=== PATIENT | female | born 1960 | race Caucasian/White ===

== ENCOUNTER 2023-12-09 22:29 | Outpatient (CLI) | payer OTHER | END 2023-12-09 23:59 | disposition critical access hospital (66) | LOC: EMS 22:29 | DX: R07.9 Chest pain, unspecified (principal); R06.00 Dyspnea, unspecified; R06.82 Tachypnea, not elsewhere classified; R61 Generalized hyperhidrosis | CPT/HCPCS: A0425; A0427 ==

== ENCOUNTER 2023-12-09 22:47 | Emergency (ER) | payer OTHER ==
[2023-12-09 23:25] LABS: BASOPHILS % (AUTO) 0.4 %; EOSINOPHILS # (AUTO) 0.1 10^3/uL (0.0-0.7); HCT - HEMATOCRIT 39.5 % (37.0-47.0); HGB - HEMOGLOBIN 12.1 g/dL (12.0-16.0); LYMPHOCYTES # (AUTO) 1.5 10^3/uL (1.5-3.5); MEAN CORPUSCULAR HEMOGLOBIN 27.5 pg (27.0-31.0); MEAN CORPUSCULAR HGB CONC 30.6 g/dL (32.0-36.0); MEAN CORPUSCULAR VOLUME 89.8 fL (81.0-99.0); MEAN PLATELET VOLUME 11.4 fL (7.9-10.8); MONOCYTES # (AUTO) 0.4 10^3/uL (0.0-1.0); MONOCYTES % (AUTO) 4.9 %; NEUTROPHILS # (AUTO) 5.9 10^3/uL (1.5-6.6); NEUTROPHILS % (AUTO) 74.3 %; PLT - PLATELET COUNT 233 10^3/uL (130-450); RED CELL DISTRIBUTION WIDTH 13.9 % (12.0-15.0)
--- NOTE | 2023-12-09 23:36 | ED Physician Documentation ---
History of Present Illness - Stated complaint Stated Complaint: CHEST/BACK PX - Chief complaint Chief Complaint: Cardiac - Additonal information Additional information: Patient is 63-year-old female presenting to the emergency department chief complaint chest pain. Endorses for chest pain that was radiating into her back that began at approximately 2130 this evening. Reports it felt like a bandlike pressure across her chest into her back. Reports a history of back spasms but states that this felt significantly different. Denies any known history cardiac disease. Does report recent flight back from [place] where she was on [place] t[place] approximately 1 week ago. Denies any history hypertension, dyslipidemia, diabetes, previous blood clots. Current medications include semaglutide for weight loss, Ambien for chronic insomnia, levothyroxine. Was given aspirin and nitro per EMS. Currently reports all symptoms resolved. Review of Systems Constitutional: denies: Fever Eyes: denies: Loss of vision Ears: denies: Loss of hearing Nose: denies: Rhinorrhea / runny nose Throat: denies: Dental pain / toothache Cardiac: reports: Chest pain / pressure Respiratory: denies: Dyspnea GI: denies: Abdominal Pain : denies: Dysuria PD PAST MEDICAL HISTORY - Past Medical History Past Medical History: Yes - Present Medications Home Medications: Ambulatory Orders Medication Instructions Recorded Confirmed Levothyroxine Sodium 50 mcg PO DAILY 12/09/23 12/09/23 Semaglutide [Ozempic] See Rx Instructions .ROUTE .COMPLEX 12/09/23 12/09/23 Zolpidem [Ambien] 5 mg PO HS 12/09/23 12/09/23 - Allergies Allergies/Adverse Reactions: Allergies Allergy/AdvReac Type Severity Reaction Status Date / Time No Known Drug Allergies Allergy Verified 12/09/23 22:51 - Social History Does the pt smoke?: No Smoking Status: Never smoker Does the pt drink ETOH?: No Does the pt have substance abuse?: No - Immunizations Immunizations are current?: Yes - POLST Patient has POLST: No PD ED PE NORMAL - General General: Alert and oriented X 3 - HEENT HEENT: Atraumatic, PERRL, EOMI, Ears normal, Moist mucous membranes - Neck Neck: Supple, no meningeal sign, No bony TTP, No adenopathy, No JVD - Cardiac Cardiac: RRR - Respiratory Respiratory: No respiratory distress - Abdomen Abdomen: Normal bowel sounds - Female Female : Deferred - Rectal Rectal: Deferred - Derm Derm: Normal color - Extremities Extremities: No deformity, Other (Pulses equal in bilateral upper extremities.) Results - Vitals Vitals: Vital Signs - 24 hr 12/09/23 12/09/23 12/09/23 22:51 22:54 23:30 Temperature 36.5 C 36.5 C Heart Rate 90 90 88 Respiratory 18 18 12 Rate Blood Pressure 173/80 H 173/80 H 163/86 H O2 Saturation 100 100 100 12/10/23 12/10/23 12/10/23 00:00 00:30 01:00 Temperature Heart Rate 95 86 96 Respiratory 13 14 16 Rate Blood Pressure 144/50 H 135/67 H 155/70 H O2 Saturation 99 98 100 12/10/23 12/10/23 01:30 02:00 Temperature Heart Rate 88 95 Respiratory 14 18 Rate Blood Pressure 130/61 O2 Saturation 98 97 Oxygen O2 Source Room air - EKG (time done) 2253 EKG releavant findings:: EKG personally interpreted by author of this note. Relevant findings are: Sinus rhythm with rate 88 bpm. Normal axis. Normal IL, QRS intervals. Bigeminy pattern. No ST segment elevations or T wave inversions. - Labs Labs: Laboratory Tests 12/09/23 12/09/23 12/10/23 23:20 23:20 01:41 WBC 8.0 RBC 4.40 Hgb 12.1 Hct 39.5 MCV 89.8 MCH 27.5 MCHC 30.6 L RDW 13.9 Plt Count 233 MPV 11.4 H Neut # (Auto) 5.9 Lymph # (Auto) 1.5 [place] # (Auto) 0.4 Eos # (Auto) 0.1 Baso # (Auto) 0.0 Absolute Nucleated RBC 0.00 Nucleated RBC % 0.0 Sodium 140 Potassium 3.4 L Chloride 107 Carbon Dioxide 24 Anion Gap 9.0 BUN 17 Creatinine 1.0 Estimated GFR (MDRD) 56 L Glucose 123 H Calcium 9.7 Total Bilirubin 0.4 AST 36 ALT 21 Alkaline Phosphatase 134 H Troponin I High Sens 3.5 5.2 Total Protein 7.5 Albumin 4.3 Globulin 3.2 Albumin/Globulin Ratio 1.3 Lipase 54 PD Medical Decision Making - ED course Complexity details: reviewed results, re-evaluated patient, considered differential, d/w patient ED course: Patient 63-year-old female presenting to the emergency department chief complaint chest tightness and shortness of breath. Had an event of chest tightness and shortness of breath this evening. EKG on arrival demonstrates a bigeminy pattern without clear indications acute cardiac ischemia. Did report that her symptoms had resolved at time of arrival. Otherwise afebrile, hemodynamically stable. Recent travel to [place]. Obtained a CT PE protocol which was negative. Her high-sensitivity troponins were negative. She was monitored in the emergency department on telemetry for several hours. She would frequently move into brief runs of bigeminy, followed by much longer periods in which she would have a narrow complex sinus rhythm with infrequent PVCs. She is overall low risk [place]. At this time there does not appear to be dangerous or life-threatening cause for her symptoms. I will discharge with explicit instructions to return immediately for new or worsening episodes of chest pain chest tightness. Elsewise I will have her follow-up with her primary care doctor as she would benefit from evaluation with them and likely referral to cardiology for further testing. Departure - Departure Disposition: Home, Self Care Clinical Impression: Bigeminal rhythm Chest pain Qualifiers: Chest pain type: unspecified Qualified Code(s): R07.9 - Chest pain, unspecified Instructions: ED Chest Pain Atypical Unkn Cause Comments: Thank you for allowing us to care for you today at [facility]. Today in the emergency department you were evaluated for any possible dangerous or life-threatening medical emergency. All the testing performed in the emergency department today was reassuring. There is no indication of injury to your heart muscle, blood clots in your lungs, injury to your lungs or the great vessels of the chest. As we discussed you did frequently enter into a rhythm in which you had regular premature ventricular complexes. It is possible that this could be causing some of the symptoms you experienced this evening. I would like you to follow-up with your primary care doctor concerning your ER visit. I think it is likely that they will wish to order further testing and/or refer you to a wire straightener for further evaluation. It is very important however that if you have a recurrent episode of chest pain or chest tightness that you return to the emergency department immediately for reevaluation. Forms: PCP List
--- NOTE | 2023-12-10 00:01 | XRAY Report ---
PROCEDURE: Chest 1V INDICATIONS: Chest pain TECHNIQUE: One view of the chest was acquired. COMPARISON: None. FINDINGS: Surgical changes and devices: None. Lungs and pleura: Low lung volumes. No consolidation or pleural effusion. Mediastinum: Normal heart size allowing for technique Bones and chest wall: Unremarkable IMPRESSION: No acute abnormality on this limited single view study with low lung volumes. Reviewed by: Jv Lara MD on 12/09/2023 11:59 PM PDT Approved by: Jv Lara MD on 12/09/2023 11:59 PM PDT Station ID: [id number]
[2023-12-10 00:09] LABS: ALBUMIN 4.3 g/dL (3.2-5.5); ALBUMIN/GLOBULIN RATIO 1.3 (1.0-2.2); BILIRUBIN,TOTAL 0.4 mg/dL (0.2-1.0); CALCIUM 9.7 mg/dL (8.5-10.3); POTASSIUM 3.4 mmol/L (3.5-4.5); TOTAL PROTEIN 7.5 g/dL (6.4-8.9)
[2023-12-10 00:13] LABS: TROPONIN I HIGH SENSITIVITY 3.5 ng/L (2.3-14.8)
[2023-12-10] MEDS ORDERED: iohexoL-300 100 ML VIAL ONE ×2 (00:29→00:38)
[2023-12-10] MEDS: iohexoL-300 100 ML VIAL IVP ONE (01:04)
--- NOTE | 2023-12-10 01:22 | CT Report ---
PROCEDURE: Angio Chest INDICATIONS: CP, high risk wells CONTRAST: 100 ML OMNI 300 TECHNIQUE: After the administration of intravenous contrast, 2 mm axial images were acquired from the pulmonary apices to the posterior costophrenic angles during the arterial phase. In addition, 1 mm lung kernel and 5 mm soft tissue kernel reconstructions were performed. 3-dimensional coronal oblique maximum int ensity projection (MIP) reformats, 8 mm axial MIP, and 5 mm coronal and sagittal MPR reformats were t hen performed through the thorax. For radiation dose reduction, the following was used: automated exp osure control, adjustment of mA and/or kV according to patient size. COMPARISON: Same-day radiograph FINDINGS: Image quality: Diagnostic Lungs and pleura:Mosaic attenuation. No dense airspace disease or pleural effusions. Mediastinum, heart, and esophagus: No acute pulmonary embolism. Borderline cardiomegaly. Mild distal esophageal wall thickening and patulous appearance. No pathologic lymph nodes by size criteria Chest wall and thyroid: No actionable thyroid nodule identified. Chest wall is unremarkable Upper abdomen: No significant findings on this arterial phase study. Bones: Degenerative changes. IMPRESSION: No acute pulmonary mosaic. No dense airspace disease or pleural effusions. Pulmonary mosaic attenuation is nonspecific, possibly related to air trapping and chronic small airways disease. Other findings above. Reviewed by: Jv Lara MD on 12/10/2023 1:20 AM PDT Approved by: Jv Lara MD on 12/10/2023 1:20 AM PDT Station ID: [id number]
[2023-12-10 03:04] VITALS: BP 140/79; O2SAT 98
== END 2023-12-10 03:34 | disposition home or self-care (01) ==
LOC: EDUNIT# → ED 22:47
DX: R07.9 Chest pain, unspecified (principal); R00.8 Other abnormalities of heart beat; Z79.899 Other long term (current) drug therapy
CPT/HCPCS: 36415; 71045; 71275; 80053; 83690; 84484; 85025; 93005; 99284; Q9967

== ENCOUNTER 2024-03-03 12:26 | Outpatient (CLI) | payer OTHER | END 2024-03-03 12:27 | disposition home or self-care (01) | LOC: DI 12:26 | PROVIDERS: ATTEND Nurse Practitioner Family | DX: R07.9 Chest pain, unspecified (principal); I34.0 Nonrheumatic mitral (valve) insufficiency; I51.7 Cardiomegaly; I49.3 Ventricular premature depolarization | CPT/HCPCS: 93307 ==

== ENCOUNTER 2024-03-25 09:20 | Outpatient (CLI) | payer OTHER ==
--- NOTE | 2024-03-25 09:50 | CARDIAC PROCEDURE NOTE ---
Stress Test Report Service Date: 03/25/24 Service Time: 09:30 Ordering Provider: Liz Yuan MD Indication for Test: Assess an episode of chest tightness. Significant Medical History: Grazyna is referred for a treadmill stress echocardiogram today, to assess for an ischemic cause of an episode of resting chest tightness that occurred in early December. She was getting ready for bed and had sudden onset of a mid central chest squeezing sensation that was nonradiating but was associated with difficulty getting her breath. Medics were summoned and she was administered a nitroglycerin with "instant" relief. She was evaluated at the [facility] Emergency Department where EKG revealed ventricular bigeminy, but was nonischemic and troponin was negative. She has not had any recurrence of the chest tightness that was associated with his episode. 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 She did take a vacation to [place] last month where she was walking an average of "10 miles daily", without recurrent chest discomfort or a reduction in stamina. She has not been aware of palpitations or lightheadedness, though she occasionally receives messages for a slow heart rate from her smartwatch. She underwent a diagnostic echocardiogram here on March 03 notable for normal size, wall thickness and function of both the right and left ventricles, with normal diastology of the LV. There was thickening of the mitral valve leaflets with mild to moderate mitral regurgitation without stenosis. She has a history of obstructive sleep apnea that was severe initially with good response to CPAP ov er the last 7-8 years. She obtains symptomatic benefit with better restfulness and sleep quality. For the last 9 months she has been treated with semaglutide with a 40 pound weight loss, which has helped her feel better. She is scheduled to see Dr Ramiro Chin in early April to review her cardiac issues. Cardiac Risk Factors: Positive for family history of coronary artery disease in both parents (father with MA/bypass surgery at age 65, mother with MA in her 80s); history of intermittent blood pressure elevation though never treated continuously with antihypertensive therapy; negative for diabetes, hyperlipidemia (most recent lipids in 12/27 included TChol 188, LDLc 106, HDLc 55, TG 115) and tobacco smoking ever. Modifying factor is treatment with CPAP for severe RADHA for about 7-8 years. Type of Stress Test: ETT with Echocardiography Procedure: -Exercise Treadmill Test- After signing informed consent, the patient underwent echo imaging at rest and then performed treadmill exercise using a [place] protocol. The patient exercised for 4 minutes 39 seconds and achieved a peak heart rate of 156 (99 percent pr edicted maximum heart rate for age), and an estimated workload of 6.6 METS. The test was terminated due to fatigue/shortness of breath. Resting heart rate: 70 Peak heart rate: 156 Normal response to exercise. Resting BP: 133/76 Peak BP: 177/81 (during exercise, increasing to 254/105 in Recovery) Hypertensive BP response to exercise. Room air oxygen saturation during exercise ranged between 97-99%. Rhythm during exercise: Sinus rhythm throughout, with PVCs starting early in exercise, initially isolated, becoming more consistently bigeminal and persisting through Recovery (though there was intermittent loss of signal coincident with post-stress echo imaging.) Total PVCs recorded 187. Symptoms: She denied any chest tightness/pressure/discomfort, as well as awareness of irreglular rhythm/lightheadedness. EKG at rest showed normal sinus rhythm with rare isolated PVC, otherwise entirely normal. EKG at peak stress showed horizontal ST depression of at least 1.0 mm in leads V4-V6 (though difficult to discern with ongoing bigeminy). In Recovery, as noted above BP spiked to 254/105 for several minutes, before decreasing (last was 151/88 at 9:00). Echo imaging, performed at rest and with stress, will be reported separately. Jesu Ledesma MD, was present throughout this treadmill stress study and supervised it in its entirety. Summary: 1) Exercise tolerance severely reduced for age and sex, as evidenced by GIOVANNY of 27%. 2) Normal resting EKG. 3) Adequate level of exercise was achieved on this treadmill stress test. 4) Abnormald BP response to exercise, with dramatic elevation between 3:00-6:00 of Recovery. 5) ST depression likely meeting EKG diagnostic criteria for ischemia were seen at peak stress. 6) Echo image interpretation reveals normal left ventricular size, wall thickness and systolic function, with apparent appropriate hyperdynamic augmentation of all segments with exercise, indicating likely no evidence of prior infarct or inducible ischemia. Interpretation of stress images was complicated by ongoing ventricular bigeminy. No significant structural valvular abnormality or elevation of estimated pulmonary artery systolic pressure seen on screening study. See separate report for more details. Conclusions and Recommendations: 1) Although the patient did not experience chest tightness/discomfort, this treadmill stress echocardiogram is abnormal from several standpoints: markedly decreased exercise tolerance, a dramatic BP increase in Recovery after physiologic BP increase during exercise, ventricular bigeminy with onset in early Stage I and persistence into Recovery and EKG response showing ST depression, likely diagnostic for ischemia. Echo imaging was of reasonable quality at rest, but bigeminy complicates interpretation of stress-associated wall motion. 2) She has been advised that her rhythm will be further evaluated following the visit with Dr Chin that she believes is scheduled on ; likely ambulatory rhythm assessment could be obtained prior to the visit, if ordered through the [facility] clinic. 3) Given her history of intermittent BP elevation in the past and abnormal hypertensive response to exercise, it was recommended that she obtain an arm BP cuff with digital stand readout, and collect a dozen or more BP readings in the mornings and some in the late afternoons, to review at her upcoming Cardiology visit.
== END 2024-03-25 09:21 | disposition home or self-care (01) ==
LOC: DI 09:20
PROVIDERS: ATTEND Nurse Practitioner Family
DX: R07.9 Chest pain, unspecified (principal); R03.0 Elevated blood-pressure reading, without diagnosis of hypertension
CPT/HCPCS: 93350